=== PATIENT | male | born 1970 | race Two or more races ===

== ENCOUNTER 2023-01-31 10:54 | Emergency (ER) | payer SELFPAY ==
[~2023-01-31] VITALS: Ht 172.7 cm; Wt 75.0 kg
[2023-01-31 11:38] LABS: BASOPHILS % 0.6 % (0.0-2.0); EOSINOPHILS % 2.3 % (0.0-5.0); HEMATOCRIT. 44.9 % (42.0-52.0); HEMOGLOBIN. 15.4 g/dL (14.0-18.0); LYMPHOCYTES % 20.1 % (20.0-50.0); MEAN CORPUSCULAR HEMOGLOBIN 33.4 pg (28.0-32.0); MEAN CORPUSCULAR VOLUME 97.7 fL (80.0-94.0); MEAN PLATELET VOLUME 8.3 fl (7.4-10.4); MONOCYTES % 9.2 % (2.0-8.0); NEUTROPHILS % 67.8 % (40.0-76.0); PLATELET 291 x1000/uL (130-400); RED CELL DISTRIBUTION WIDTH 12.9 % (11.6-14.6)
[2023-01-31 11:48] LABS: CHLORIDE 108 mEq/L (98-107)
[2023-01-31 11:49] LABS: PARTIAL THROMBOPLASTIN TIME 27.1 sec (23.4-31.0); PROTHROMBIN TIME 11.1 sec (9.6-11.0)
[2023-01-31] MEDS ORDERED: NITROGLYCERIN 0.4MG TABLET SL SL ONE (13:00)
[2023-01-31 15:46] VITALS: BP 118/63
== END 2023-01-31 15:30 | disposition home or self-care (01) ==
LOC: ER 10:54
DX: R07.89 Other chest pain (principal); R06.02 Shortness of breath
CPT/HCPCS: 36415; 71045; 80053; 83880; 84484; 85025; 93005; 99285